=== PATIENT | female | born 1990 | race Caucasian/White ===

== ENCOUNTER 2018-10-08 10:23 | Inpatient (IN) | payer OTHER ==
[~2018-10-08] VITALS: Ht 165.1 cm; Wt 95.9 kg
[2018-10-08] VITALS (18 sets, daily range): BP systolic 120–140; BP diastolic 51–80; PULSE 69–94; TEMP 97.5–98.2
[~2018-10-08 10:23] MED LIST: IBU800 M1 PO; NORCO 325 MG-51 TAB PO; PERCOCET 325 MG1 TA2 PO
[2018-10-08 11:08] LABS: BASO # 0.1 (0.0-0.2); BASO % 0.5 % (0.0-2.0); EOS # 0.2 (0.0-0.7); EOS % 1.7 % (0-4.0); GRAN # 7.7 (1.4-6.5); GRAN % 72.4 % (42.2-75.2); HEMOGLOBIN 12.1 g/dl (12.5-16.0); LYMPH # 1.7 (1.2-3.4); LYMPH % 16.3 % (20.0-51.0); MEAN CELL VOLUME 91 fl (80.0-100.0); MEAN CORPUSCULAR HEMOGLOBIN 31 pg (27.0-31.0); MEAN CORPUSCULAR HGB CONC 33 g/dl (33.0-37.0); MEAN PLATELET VOLUME 11.4 fl (7.4-10.4); MONO # 0.9 (0.1-0.6); PLATELET COUNT 187 K/mm3 (130-400); RED BLOOD COUNT 3.97 M/mm3 (4.10-5.30); REDCELL DISTRIBUTION WIDTH-CV 13.3 % (11.5-14.5)
[2018-10-08 11:10] LABS: HEMATOCRIT 36.3 % (37.0-47.0)
--- NOTE | 2018-10-08 11:15 | NUR ---
1040 PATIENT HERE FOR REPEAT C SECTION. ASSESSMENT COMPLETED. VS WNL. EFM FHT 120'S BABY VERY ACTIVE. NO CONTRACTIONS NOTED. PATIENT DENIES NEEDS. IV STARTED IN LEFT WRIST. CHG SCRUB TO INCISION SITE AT THIS TIME. LR 1000 CC HUNG AT THIS TIME FOR BOLUS. PATIENT READY FOR OR.
[2018-10-09 00:15] VITALS: BP 122/60; PULSE 71; TEMP 98.3
[2018-10-09 04:20] VITALS: BP 111/67; PULSE 67; TEMP 97.3
--- NOTE | 2018-10-09 07:00 | NUR ---
0740 Rest in bed, alert. Baby brought in to breast feed. Denies any needs at this time.
[2018-10-09] MEDS ORDERED: IBU600 MG PO (08:52)
[2018-10-09] MEDS ORDERED: PERCOCET 325 MG1 TA2 PO (08:52)
[2018-10-09 09:00] VITALS: BP 123/84; PULSE 74; TEMP 97.6
--- NOTE | 2018-10-09 09:00 | NUR ---
0909 Rests in bed, alert. Percocet 5/325 mg. p.o. given per request and as ordered.
--- NOTE | 2018-10-09 13:15 | NUR ---
1322 Percocet 5/325 mg two given per request and as ordered.
[2018-10-09 16:15] VITALS: BP 125/73; PULSE 73; TEMP 97.7
--- NOTE | 2018-10-09 16:15 | NUR ---
Rests in bed, alert. Family at bedside.
[2018-10-09 21:00] VITALS: BP 133/84; PULSE 68; TEMP 97.8
[2018-10-10 08:15] VITALS: BP 128/70; PULSE 63; TEMP 97
[2018-10-10 17:15] VITALS: BP 137/76; PULSE 75; TEMP 97.2
[2018-10-10 20:55] VITALS: BP 136/79; PULSE 68; TEMP 98.2
[2018-10-11 07:38] VITALS: BP 120/68; PULSE 73; TEMP 98.4
== END 2018-10-11 10:10 | disposition home or self-care (01) | DRG 787 ==
LOC: OB 10:23 → LDR 17:23 → OB 10-11 10:10
PROVIDERS: ADMIT Obstetrics & Gynecology
PROC: 10D00Z1 Extraction of Products of Conception, Low, Open Approach (ICD-10-PCS; principal; 2018-10-08)
DX: O34.211 Maternal care for low transverse scar from previous cesarean delivery (principal); O99.834 Other infection carrier state complicating childbirth; Z3A.39 39 weeks gestation of pregnancy; Z37.0 Single live birth; O99.214 Obesity complicating childbirth; A60.00 Herpesviral infection of urogenital system, unspecified
CPT/HCPCS: J0690; J1885; J2270; J2370; J2405; J2590; J7120